=== PATIENT | female | born 1945 | race Caucasian/White ===

== ENCOUNTER 2019-07-25 20:24 | Inpatient (IN) | payer MEDICARE, OTHER ==
[~2019-07-25] VITALS: Ht 157.5 cm; Wt 61.7 kg
--- NOTE | 2019-07-25 20:48 | NUR ---
Patient BIB ambulance from [facility] on 5150 hold for DTS and DTO. Patient upon arrival A/Ox3 calm and cooperative.
--- NOTE | 2019-07-25 21:10 | NUR ---
Medically cleared by Dr Sanchez.
[2019-07-25] MEDS ORDERED: HYDROCODONE/APAP 5-325MG TABLET PO ONE (21:15)
[2019-07-25] MEDS ORDERED: HYDROCODONE/APAP 5-325MG TABLET ONE (21:15)
[2019-07-25 21:30] VITALS: BP 162/79
--- NOTE | 2019-07-25 21:30 | NUR ---
Transfered to MHU via gurny with no distress noted.
[2019-07-25] MEDS ORDERED: MAGNESIUM HYDROXIDE 30 ML LIQUID UDC PO PRN (21:45)
[2019-07-25] MEDS ORDERED: MAG HYDROX/AL HYDROX/SIMETH 30 ML LIQUID UDC PO PRN (21:45)
[2019-07-25] MEDS ORDERED: ACETAMINOPHEN 325 MG TABLET PO PRN (21:45)
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
[2019-07-25] MEDS ORDERED: DEXTROSE 50% 50 ML DISP.SYRIN IV PRN (22:45)
[2019-07-25] MEDS ORDERED: INSULIN REGULAR, HUMAN 300 UNIT/3 ML VIAL SQ PRN (22:45)
[2019-07-25] MEDS: TEMAZEPAM 7.5 MG CAPSULE PO PRN (23:07)
[2019-07-26] MEDS: LORAZEPAM 1 MG TABLET PO PRN (01:54)
--- NOTE | 2019-07-26 06:48 | NUR ---
Pt observed in bed resting, breathing even and unlabored at this time, in no acute distress. No overnight events.
[2019-07-26] MEDS ORDERED: BLOOD SUGAR DIAGNOSTIC 1 EACH STRIP VI SCH (07:30)
[2019-07-26 07:43] LABS: BASOPHILS % (AUTO) 0.6 % (0.0-2.0); EOSINOPHILS # (AUTO) 0.1 K/uL (0.0-0.7); EOSINOPHILS % (AUTO) 1.2 % (0.0-7.0); HEMATOCRIT 36.7 % (31.2-41.9); HEMOGLOBIN 12.2 g/dL (10.9-14.3); LYMPHOCYTES # (AUTO) 3.8 K/uL (20.0-40.0); LYMPHOCYTES % (AUTO) 47.7 % (20.5-51.5); MEAN CORPUSCULAR HEMOGLOBIN 29.4 uug (24.7-32.8); MEAN CORPUSCULAR HGB CONC 33 g/dL (32.3-35.6); MEAN CORPUSCULAR VOLUME 88.1 fL (75.5-95.3); MONOCYTES # (AUTO) 0.8 K/uL (2.0-10.0); MONOCYTES % (AUTO) 10.3 % (0.0-11.0); NEUTROPHILS # (AUTO) 3.2 K/uL (1.8-8.9); NEUTROPHILS % (AUTO) 40.2 % (38.5-71.5); PLATELET COUNT (AUTO) 289 K/uL (179-408); RED BLOOD CELL COUNT(AUTO) 4.16 MIL/uL (3.63-4.92)
[2019-07-26 07:52] LABS: ALANINE AMINOTRANSFERASE 22 U/L (14-59); ALKALINE PHOSPHATASE 60 U/L (50-136); ASPARTATE AMINOTRANSFERASE 27 U/L (15-37); BILIRUBIN,TOTAL 0.2 mg/dL (0.2-1.0); CARBON DIOXIDE 24 mmol/L (21-32); CHLORIDE 95 mmol/L (98-107); CHOLESTEROL 153 mg/dL (<200); CREATININE 1.3 mg/dL (0.6-1.3); GLUCOSE 121 mg/dL (74-106); HDL CHOLESTEROL 34 mg/dL (40-60); MAGNESIUM 1.8 mg/dL (1.8-2.4); PHOSPHOROUS 4.5 mg/dL (2.5-4.9); POTASSIUM 3.1 mmol/L (3.5-5.1); TOTAL PROTEIN, SERUM 7.5 g/dL (6.4-8.2); TRIGLYCERIDES 231 MG/DL (30-150); UREA NITROGEN, BLOOD 23 mg/dL (7-18)
[2019-07-26 08:09] VITALS: BP 109/76
[2019-07-26] MEDS: METFORMIN HCL 850 MG TABLET PO SCH ×2 (08:48→17:10)
[2019-07-26] MEDS: HYDROCHLOROTHIAZIDE 25 MG TABLET PO SCH (08:49)
[2019-07-26] MEDS: CARVEDILOL 12.5 MG TABLET PO SCH ×2 (08:50→17:12)
[2019-07-26] MEDS: ASPIRIN 325 MG TABLET PO SCH (08:50)
[2019-07-26] MEDS: FAMOTIDINE 20 MG TABLET PO SCH (08:52)
[2019-07-26] MEDS: GABAPENTIN 300 MG CAPSULE PO SCH ×3 (08:55→17:11)
[2019-07-26] MEDS ORDERED: GABAPENTIN 300 MG CAPSULE PO SCH (09:00)
[2019-07-26] MEDS ORDERED: FAMOTIDINE 20 MG TABLET PO SCH (09:00)
[2019-07-26] MEDS ORDERED: VENLAFAXINE XR 150 MG CAP.SR.24H PO SCH (09:00)
[2019-07-26] MEDS ORDERED: INFLUENZA VACCINE 2019-2020 0.5 ML DISP.SYRIN IM ONE (09:00)
[2019-07-26 09:07] LABS: THYROID STIMULATING HORMONE 3.162 mIU/mL (0.358-3.740)
--- NOTE | 2019-07-26 10:25 | NUR ---
Social Work Note/Initial Discharge Plan: Patient currently resides with daughter Virgie ([phone]) at [address], [place] [address]; ([phone]). egg factory worker will work with the patient and the MD regarding appropriate discharge planning. egg factory worker will form a safe and proper discharge.
--- NOTE | 2019-07-26 11:27 | NUR ---
Social Work Note/Family Contact: asphalt worker contacted patients daughter Virgie ([phone]) who stated that she is unable to take care of her mother and that she is moving out. Per Virgie, she stated that she is moving out of stated and that her mother will need a placement.
--- NOTE | 2019-07-26 11:28 | NUR ---
Social Work Note/Coordination of Care: This freelance writer is working on finding a placement for patient and has contacted Mahesh wyatt ([phone]) who will help with assistance to finding a placement for patient.
--- NOTE | 2019-07-26 11:34 | NUR ---
Social Work Note/UR Note: odd job worker faxed Danita from [facility] ([phone]) (F:[phone]) [facility] psychiatric notes and progress notes.
[2019-07-26] MEDS ORDERED: POTASSIUM CHLORIDE 20 MEQ TAB.PRT.SR PO ONE (14:00)
[2019-07-26] MEDS: VENLAFAXINE XR 150 MG CAP.SR.24H PO SCH (14:15)
[2019-07-26 15:36] VITALS: BP 145/63
[2019-07-26] MEDS: BLOOD SUGAR DIAGNOSTIC 1 EACH STRIP VI SCH (16:39)
--- NOTE | 2019-07-26 17:45 | NUR ---
pt. transferred from MHU. V/S stable sitter at bedside. no c/o at this time
--- NOTE | 2019-07-26 19:52 | NUR ---
received in bed awake sitter at bed side we will continue to monitor
[2019-07-26] MEDS: ATORVASTATIN 20 MG TABLET PO SCH (20:02)
[2019-07-26 21:02] VITALS: BP 127/49
[2019-07-26] MEDS: TEMAZEPAM 7.5 MG CAPSULE PO PRN (21:12)
[2019-07-26] MEDS: HYDROCODONE/APAP 5-325MG TABLET PO PRN (21:25)
[2019-07-27] MEDS: LORAZEPAM 1 MG TABLET PO PRN (00:50)
[2019-07-27 04:00] VITALS: BP 135/45
[2019-07-27] MEDS: BLOOD SUGAR DIAGNOSTIC 1 EACH STRIP VI SCH ×2 (06:31→17:25)
[2019-07-27 07:30] VITALS: BP 136/58
--- NOTE | 2019-07-27 08:31 | NUR ---
Social Work Note/Individual Therapy: fat purification worker met with patient for brief counseling and assessed for level of suicidality. fat purification worker assessed for suicidal thoughts, patient denied suicidal thoughts. Patient expressed that she is not SI and does not have any thoughts. fat purification worker provided comfort and actively listened.
--- NOTE | 2019-07-27 09:00 | NUR ---
Social Work Note/UR Note: fiber worker faxed Danita from [facility] ([phone]) (F:[phone]) [facility] & P psychiatric notes and progress notes.
[2019-07-27] MEDS: METFORMIN HCL 850 MG TABLET PO SCH ×2 (09:04→17:20)
[2019-07-27] MEDS: GABAPENTIN 300 MG CAPSULE PO SCH ×3 (09:04→17:21)
[2019-07-27] MEDS: ASPIRIN 325 MG TABLET PO SCH (09:04)
[2019-07-27] MEDS: HYDROCHLOROTHIAZIDE 25 MG TABLET PO SCH (09:04)
[2019-07-27] MEDS: FAMOTIDINE 20 MG TABLET PO SCH (09:04)
[2019-07-27] MEDS: HYDROCODONE/APAP 5-325MG TABLET PO PRN ×2 (09:05→15:24)
[2019-07-27] MEDS: CARVEDILOL 12.5 MG TABLET PO SCH ×2 (09:05→17:22)
[2019-07-27] MEDS: VENLAFAXINE XR 150 MG CAP.SR.24H PO SCH (09:06)
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
--- NOTE | 2019-07-27 11:41 | NUR ---
Social Work Note: silk worker received a call from Richard from [facility] ([phone]) who stated that Dr. Reese needs to do a peer to peer with Dr. Camara ([phone]) due to patients insurance [employer] requesting. This account underwriter notified Dr. Reese.
--- NOTE | 2019-07-27 13:15 | NUR ---
Social Work Note/Family Contact: turn down worker spoke with patients daughter Virgie ([phone]) and will drop off patients belongings 07/27 today to the nursing staff in the mental health unit.
--- NOTE | 2019-07-27 15:36 | NUR ---
Social Work Note/Family Contact: lease out worker spoke with patients daughter Virgie ([phone]) and left a voicemail that her mother will be discharged tomorrow to [facility].
[2019-07-27 17:15] VITALS: BP 172/74
[2019-07-27 20:00] VITALS: BP 144/71
--- NOTE | 2019-07-27 20:00 | NUR ---
Patient received into care, sitting up in bed, watching television, resting comfortably. Patient is alert/oriented x3 and has no complaints of pain or discomfort at this time. Safety and fall precautions are in place. Call light and personal items are within reach. Will continue to monitor and assess.
[2019-07-27] MEDS: TEMAZEPAM 7.5 MG CAPSULE PO PRN (21:49)
[2019-07-27] MEDS: ATORVASTATIN 20 MG TABLET PO SCH (21:49)
[2019-07-28] MEDS: HYDROCODONE/APAP 5-325MG TABLET PO PRN (00:24)
--- NOTE | 2019-07-28 06:00 | NUR ---
Patient slept for a total of 2 hours this shift and is currently laying in bed, watching television. Complaint of insomnia was addressed with prescribed sleep aid, with no adverse side effects verbalized by patient or noted/observed by nurse. Patient was compliant with all aspects of care and medicine regime. Complaint of pain was addressed with prescribed analgesics with relief expressed by patient and no adverse side effects verbalized or noted/observed by nurse. Safety and fall precaution measures remain in place. Personal items remain within reach.
--- NOTE | 2019-07-28 06:09 | NUR ---
Patient slept 2 hours this shift.
[2019-07-28] MEDS: BLOOD SUGAR DIAGNOSTIC 1 EACH STRIP VI SCH (06:40)
[2019-07-28 07:21] LABS: THYROID STIMULATING HORMONE 2.453 mIU/mL (0.358-3.740)
--- NOTE | 2019-07-28 07:30 | NUR ---
Received patient in bed, awake, alert and verbally responsive. No signs of distress noted. No SOB. No complain of Pain or discomfort. No SI noted. All needs attended. Kept clean and comfortable.
[2019-07-28 07:33] LABS: CREATININE 1.2 mg/dL (0.6-1.3); MAGNESIUM 1.7 mg/dL (1.8-2.4); PHOSPHOROUS 3.7 mg/dL (2.5-4.9); URIC ACID 8.3 mg/dL (2.6-6.0)
[2019-07-28 07:47] LABS: POTASSIUM 3.8 mmol/L (3.5-5.1)
[2019-07-28] MEDS: VENLAFAXINE XR 150 MG CAP.SR.24H PO SCH (08:01)
[2019-07-28] MEDS: METFORMIN HCL 850 MG TABLET PO SCH (08:01)
[2019-07-28] MEDS: ASPIRIN 325 MG TABLET PO SCH (08:01)
[2019-07-28] MEDS: CARVEDILOL 12.5 MG TABLET PO SCH (08:01)
[2019-07-28] MEDS: GABAPENTIN 300 MG CAPSULE PO SCH ×2 (08:01→12:15)
[2019-07-28] MEDS: FAMOTIDINE 20 MG TABLET PO SCH (08:01)
--- NOTE | 2019-07-28 08:22 | NUR ---
Social Work Note/Discharge: Patient will be discharged to [facility] [address] [facility]. Kira senior oracle database administrator ([phone]) states they are ready to accept the patient today and will be picking the patient up at 2PM. Patient is aware and agreeable with discharge plans. Patient is alert and oriented x3-4, is unable to plan for self-care at this time, however, is willing to accept care at the facility. Patient denies any suicidal or homicidal ideation. Patient is aware and agreeable with discharge plans. Patients daughter Virgie ([phone]), is aware and agreeable with discharge plans. Patient is aware and agreeable with discharge plans. Patient will follow-up with primary doctor with Dr. Matias Joseph with (Primary Care Physician) and Dr. Cid (Psychiatrist) at the facility. Patient was provided with outpatient mental health resources to [facility] Crisis [facility] , and the National Suicide Prevention Lifeline . Patient presented with euthymic and congruent mood. Patient presents with euthymic mood and congruent affect.
--- NOTE | 2019-07-28 08:27 | NUR ---
Social Work Note/Firearms Report: Pattern Chain Maker Supervisor completed and submitted a [employer] firearms report for 5150 grave disability certification. A copy of report has been placed in patient chart.
--- NOTE | 2019-07-28 08:58 | NUR ---
Social Work Note/Individual Therapy: irrigation worker met with patient for brief counseling and assessed for level of suicidality. irrigation worker assessed for suicidal thoughts, patient denied suicidal thoughts. Patient expressed that she had made a mistake and that she never wanted to "kill" herself and never attempted too. She stated she gave her dog sleeping pills so that they both can take it together. However, patient stated that she will "never do such a thing before". She expressed that she loves her life and loves her dog. Patient currently denies SI. irrigation worker provided comfort and actively listened and provided patient hotline number.
[2019-07-28] MEDS ORDERED: MAGNESIUM OXIDE 400 MG TABLET PO ONE (12:00)
[2019-07-28 12:10] VITALS: BP 159/68
--- NOTE | 2019-07-28 13:55 | NUR ---
Patient with Order to be discharge to [facility], patient will be berry picker by [facility] correctional counselor/case manager. Discharge Instruction given to patient and verbalized Understanding, All belongings and contra band was signed and sent with patient. Removed Wrist band. Patient was picked up in stable condition.
== END 2019-07-28 14:10 | DRG 885 ==
LOC: ER 20:27 → GPS 21:25 → GPSOV3 07-26 17:55
PROVIDERS: ADMIT Psychiatry & Neurology Psychiatry
DX: F33.2 Major depressive disorder, recurrent severe without psychotic features (principal); E87.1 Hypo-osmolality and hyponatremia; Z90.710 Acquired absence of both cervix and uterus; E11.42 Type 2 diabetes mellitus with diabetic polyneuropathy; Z79.82 Long term (current) use of aspirin; Z79.84 Long term (current) use of oral hypoglycemic drugs; I10 Essential (primary) hypertension; G89.29 Other chronic pain; E87.6 Hypokalemia; T50.2X5A Adverse effect of carbonic-anhydrase inhibitors, benzothiadiazides and other diuretics, initial encounter; Y92.009 Unspecified place in unspecified non-institutional (private) residence as the place of occurrence of the external cause; Z79.899 Other long term (current) drug therapy; Z96.659 Presence of unspecified artificial knee joint; M54.5 Low back pain
CPT/HCPCS: 36415; 71045; 83735; 84100; 84300; 84443; 84550; 85025; 90686; 93005; A4663; J1815